=== PATIENT | female | born 1985 | race Hispanic/Latino ===

== ENCOUNTER 2025-01-17 21:20 | Emergency (ER) | payer OTHER ==
[~2025-01-17] VITALS: Ht 172.7 cm; Wt 104.3 kg
[2025-01-17 21:44] VITALS: PULSE 93; RESP 20; TEMP 98.5; O2SAT 98
[2025-01-17] MEDS: TRAMADOL HCL 50 MG TAB PO STA (21:50)
[2025-01-17] MEDS ORDERED: ACETAMINOPHEN-1 EAC4 PO (22:40)
[2025-01-17] MEDS ORDERED: ONDANSETRON ODT4 MG PO (22:40)
== END 2025-01-17 23:11 | disposition home or self-care (01) ==
LOC: ER 21:25
DX: S82.62XA Displaced fracture of lateral malleolus of left fibula, initial encounter for closed fracture (principal); X50.1XXA Overexertion from prolonged static or awkward postures, initial encounter; Y93.66 Activity, soccer; Y92.89 Other specified places as the place of occurrence of the external cause; F17.210 Nicotine dependence, cigarettes, uncomplicated
CPT/HCPCS: 99284